=== PATIENT | female | born 1970 | race Caucasian/White ===

== ENCOUNTER 2019-09-14 19:12 | Inpatient (IN) | payer SELFPAY ==
[~2019-09-14] VITALS: Ht 152.4 cm; Wt 50.8 kg
[2019-09-14 19:23] VITALS: Ht 152.4 cm; Wt 50.8 kg
--- NOTE | 2019-09-14 19:40 | NUR ---
PATIENT MOVED FROM BED 3 TO BED OB. DEMETRIA BALLESTEROS AWARE.
--- NOTE | 2019-09-14 20:00 | NUR ---
LAB AT BEDSIDE TO COLLECT BLOOD CULTURES
--- NOTE | 2019-09-14 20:09 | NUR ---
PT CAME TO ED CO PAIN TO BILATERAL ARMS, BREAST AND LEGS. PT STS THIS PAIN STARTED ABOUT 3 MONTHS AGO. PT STS ON SATURDAY SHE STARTED TO EXPERIENCE FEVER AND DIAHERRA. PT AMBULATED FROM BED 3 TO OB WITH STEADY GAIT. PT PROVIDED A URINE SAMPLE. PT TALKING IN COMPLETE SENTENCES. NO S/S OF DISTRESS. RESP E/U. WILL CONTINUE TO MONITOR.
[2019-09-14 20:20] LABS: microscopic required? NO
[2019-09-14 20:35] LABS: urine erythrocyte NEGATIVE (NEGATIVE)
[2019-09-14 20:37] LABS: CALCIUM 8.6 mg/dL (8.5-10.1); CARBON DIOXIDE 22.9 mmol/L (21-32); CHLORIDE SERUM 94 mmol/L (98-107); CREATININE SERUM 0.5 mg/dL (0.6-1.0); GFR1 > 60 mL/min; GLUCOSE SERUM 371 mg/dL (74-106); SODIUM SERUM 129 mmol/L (136-145)
[2019-09-14 20:41] LABS: ALBUMIN 3.1 g/dL (3.4-5.0); ALKALINE PHOSPHATASE 105 U/L (46-116); ALT/SGPT 16 U/L (14-59); AST/SGOT 13 U/L (15-37); BILIRUBIN TOTAL 0.4 mg/dL (0.20-1.00); TOTAL PROTEIN, SERUM 7.1 g/dL (6.4-8.2)
[2019-09-14 20:42] LABS: BASOPHIL % 0.3 % (0-2); PLATELET COUNT 196 x10^3mcL (130-400); RED CELL DISTRIBUTION WIDTH 13.1 % (11.5-14.5)
[2019-09-14] MEDS ORDERED: METFORMIN500 M1 (21:29)
[2019-09-14] MEDS ORDERED: INSULIN SYRING1 EA29 (21:30)
[2019-09-14] MEDS ORDERED: METOPROLOL ER-1 EAC2 (21:30)
--- NOTE | 2019-09-14 21:44 | NUR ---
PT MEDICATED PER ORDER. PT VERBALIZED UNDERSTANDING OF MEDICATION TEACHING. SEE EMAR FOR DETAILS.
--- NOTE | 2019-09-14 21:55 | NUR ---
REPORT CALLED TO DEMETRIA GANNON TO ASSUME CARE
[2019-09-14 22:12] LABS: CHOLESTEROL/HDL RATIO 2.5
--- NOTE | 2019-09-14 22:22 | NUR ---
PT TRANSFERRED TO TELE FLOOR ACCOMPANIED BY NURSE AND EMT. NO S/S OF DISTRESS. RESP E/U. IV STIE PATENT, NO S/S OF INFILTRATION.
--- NOTE | 2019-09-14 22:25 | NUR ---
RECEIVED PT VIA [employer] FROM E/D, ACCOMPANIED BY RN AND TRANSPORTER. PT A/A/O X 4, CALM, COOPERATIVE; [place]-SPEAKING ONLY; DAUGHTER, BRAYAN ENGLISH ON PHONE FOR TRANSLATION. AMBULATORY, NO GAIT OR BALANCE IMPAIRMENT NOTED WHEN WALKING FROM GURNEY TO BED; C/O INTERMITTENT GENERALIZED BODY ACHING 10/10, EXACERBATED BY MOVEMENT AND WALKING, RELIEVED BY RESTING AND PAIN MEDICATION. ON TELE # 30, ST, HR 103, DENIES CHEST PAIN OR DISCOMFORT AT THIS TIME. LUNGS CTAB, CHEST RISING EVENLY, R/A, NO ACUTE RESPIRATORY DISTRESS NOTED (CXR SHOWS PATCHY GIL INFILTRATES). ABD SOFT, FLAT, NON-TENDER, NORMOACTIVE BOWEL SOUNDS X 4 QUADS, LAST BM 09/14/2019, DIARRHEA; PT STATES SHE DOES NOT HAVE SENSE OF TASTE. VOIDS FREELY, C/O BURNING ON URINATION (UA +KETONES). IV SITE RAC 20G, CDI. ORIENTED PT TO ROOM, BED CONTROLS, CALL LIGHT SYSTEM. SIDE RAILS UP X 2, BED IN LOW POSITION. PT ON CONTACT/DROPLET PRECAUTIONS D/T R/O COVID-19. WILL ENDORSE TO DEMETRIA GARZA.
--- NOTE | 2019-09-14 23:11 | NUR ---
PT MEDICATED W/ NORCO 7.5/325 MG PO GIVEN FOR C/O GEN. BODY PAIN 01/22.
[2019-09-14 23:31] VITALS: BP 152/79
--- NOTE | 2019-09-15 05:13 | NUR ---
PT REMAINS ASLEEP. SHE IS ON ROOM AIR AND NO C/O SOB. SHE WAS MEDICATED FOR GEN BODY PAIN X1. SHE IS AMBULATORY. IV ZITHROMAX STARTED THIS SHIFT. ALL NEEDS ATTENDED TO.
[2019-09-15 05:38] VITALS: BP 124/63
[2019-09-15 06:53] LABS: BASOPHIL % 0.2 % (0-2); PLATELET COUNT 188 x10^3mcL (130-400); RED CELL DISTRIBUTION WIDTH 13.3 % (11.5-14.5)
[2019-09-15 07:13] LABS: CALCIUM 8.2 mg/dL (8.5-10.1); CARBON DIOXIDE 22.9 mmol/L (21-32); CHLORIDE SERUM 100 mmol/L (98-107); CREATININE SERUM 0.4 mg/dL (0.6-1.0); GFR1 > 60 mL/min; GLUCOSE SERUM 234 mg/dL (74-106); MAGNESIUM 1.7 mg/dL (1.8-2.4); POTASSIUM SERUM 3.9 mmol/L (3.5-5.1); SODIUM SERUM 135 mmol/L (136-145)
--- NOTE | 2019-09-15 07:20 | NUR ---
RECEIVED PT. IN BED A/A/O X3. NO SOB, NO N/V NOTED. PT. DENIES ANY PAIN AT THIS TIME. IV SITE NOTED TO R AC. PT. IS DROPLET ISOLATION FOR RULING OUT COVID-19. BED IN LOW POS., CALL LIGHT WITHIN REACH. SIDE RAILS UP X3.
[2019-09-15 07:27] LABS: C REACTIVE PROTEIN 13.2 mg/dL (<=0.9)
[2019-09-15 09:12] VITALS: BP 139/83
[2019-09-15 13:06] VITALS: BP 132/77
--- NOTE | 2019-09-15 14:45 | NUR ---
Discount pharmacy card and list to low cost medical clinics given to [place] AUGUSTIN and will hand to patient.
[2019-09-15 16:44] VITALS: BP 149/75
--- NOTE | 2019-09-15 17:35 | NUR ---
TEMP.= 101.3; TYLENOL 650MG PO GIVEN. COOLING MEASURES APPLIED.
--- NOTE | 2019-09-15 19:33 | NUR ---
REMAINS IN STABLE CONDITION AT THIS TIME. LIDODERM 5% PATCH TO BE REMOVED AT 0440 AM ON 09/16/19. HAND CULTIVATOR RN (GREG PARTIDA RN) MADE AWARE OF THE TIME FOR THE LIDODERM PATCH REMOVAL.
--- NOTE | 2019-09-15 21:00 | NUR ---
RECEIVED PT IN BED AWAKE, ALERT,ORIENTED X4. LUNG SOUNDS DIMINISHED. NO SOB ON ROOM AIR. SHE IS C/O PAIN TO HER LT ARM 10. W/ HL TO RTAC INTACT CALL LIGHT W/IN REACH.
--- NOTE | 2019-09-15 21:14 | NUR ---
PT MEDICATED W/ NORCO 7.5/325 MG PO FOR C/O PAIN TO LT ARM 08/22.
--- NOTE | 2019-09-15 21:45 | NUR ---
PT C/O PAIN TO HER IV SITE ON HER RTAC. NO SWELLING NOTED. NEW IV STARTED ON THE LT HAND. PT TOLERATED PROCEDURE WELL. IV TO RTAC REMOVED.
[2019-09-15 21:49] VITALS: BP 122/69
[2019-09-16 05:06] VITALS: BP 127/70
--- NOTE | 2019-09-16 05:45 | NUR ---
PT MEDICATED W/ TYLENOL 650 MG PO FOR TEMP= 100.4 (ORAL). ALSO MEDICATED W/ NORCO 7.5/325 MG PO FOR C/O RT ARM PAIN 8/10.
--- NOTE | 2019-09-16 06:16 | NUR ---
PT SLEPT IN INTERVALS. SHE HAD NO EPISODE OF SOB AND REMAINS ON ROOM AIR. PT SATTING 96%. SHE WAS MEDICATED FOR LT ARM X1 AND RT ARM X1. PT ALSO W/ TEMP OF 100.4 THIS AM AND WAS GIVEN TYLENOL. PT NOTED W/ OCCASIONAL DRY COUGH. SHE IS AMBULATORY. NO BM THIS SHIFT. ALL NEEDS ATTENDED TO. DROPLET ISOLATION MAINTAINED.
--- NOTE | 2019-09-16 07:30 | NUR ---
PT ENDORSE TO ME THIS MORNING, REAMINS ON ISOLATION. AA/O X4/ CITIZEN OF [place] SP[place]. IS ABLE TO FOLLOW SIMPLE COMMANDS AND LET NEEDS BE KNOWN. TELE 30 ST NOTED HR 102 DENIES ANY CP OR PRESSURE. CTA REMAINS ON RN / NO ACUTE RESP DISTRESS OR SOB NOTED/ BREATHING EVEN AND UNLABORED. BOWEL SOUNDS ACTIVE IN ALL FOUR QUADS/VOIDS FREELY. AMB. STEADY GAIT. IV TO THE L HAND INTACT AND PATENT/ NO REDNESS OR SWELLING NOTED. CALL LIGHT IN REACH. WILL CONTINUE TO MONITOR.
[2019-09-16 08:06] LABS: CALCIUM 8.5 mg/dL (8.5-10.1); CARBON DIOXIDE 23.6 mmol/L (21-32); CHLORIDE SERUM 95 mmol/L (98-107); CREATININE SERUM 0.4 mg/dL (0.6-1.0); GFR1 > 60 mL/min; GLUCOSE SERUM 258 mg/dL (74-106); MAGNESIUM 1.7 mg/dL (1.8-2.4); PHOSPHOROUS 2.8 mg/dL (2.5-4.9); SODIUM SERUM 132 mmol/L (136-145)
[2019-09-16 09:08] VITALS: BP 125/76
[2019-09-16 11:49] VITALS: BP 119/75
[2019-09-16 12:49] LABS: BASOPHIL % 0.2 % (0-2); PLATELET COUNT 224 x10^3mcL (130-400); RED CELL DISTRIBUTION WIDTH 13.2 % (11.5-14.5)
--- NOTE | 2019-09-16 16:03 | NUR ---
LIDODERM PATCH APPLIED TO ANA
--- NOTE | 2019-09-16 16:28 | NUR ---
CURRENT TEMP 100.9 MEDICATED PER EMAR/ APPLIED COOLING MEASURES. WILL CONTINUE TO MONITOR.
--- NOTE | 2019-09-16 18:13 | NUR ---
NO ACUTE CHANGES AT THIS TIME. NO ACUTE RESP DISTRESS OR SOB NOTED.ARIANNA TEMP = 99.1 / SATING AT 95 % ON RA/ DENIES ANY SOB. SITTING UP IN BED HAVING HER DINNER/ DENIES ANY NV AT THIS TIME. PER PT HAD X1 BM TODAY. WILL ENDORSE TO INCOMING RN.
--- NOTE | 2019-09-16 19:47 | NUR ---
RECIEVED PT FROM PREVIOUS SHIFT NURSE. PT RESTING IN BED, AOX3, PRIMARILY CITIZEN OF [place] SPEAKING BUT ABLE TO MAKE NEEDS KNOWN, DENIES GARCIA, N/V, OR PAIN AT THE MOMENT, ABLE TO FOLLOW COMMANDS, AND NO FACIAL DROOPING NOTED. RR EVEN AND UNLABORED ON RA, CHEST RISING EQUALLY, DENIES SOB OR DIFFICULTY BREATHING. TELE #30 ST, PULSE OX: 95%, DENIES CHEST PAIN OR PRESSURE. IV LH WNL, NO ERYTHEMA, EDEMA, OR DRAINAGE NOTED. PT MAINTAINED ON CONTACT/DROPLET ISOLATION FOR COVID-19(+). BED IN LOWEST POSITION AND CALL LIGHT WITHIN REACH. WILL CONTINUE TO MONITOR.
[2019-09-16 21:18] VITALS: BP 131/72
--- NOTE | 2019-09-16 22:33 | NUR ---
PT C/O CHEST PAIN, DR. SANCHEZ NOTIFIED. WILL CONTINUE TO MONITOR.
--- NOTE | 2019-09-17 01:47 | NUR ---
PT RESTING IN BED W/ HOB ELEVATED. RR EVEN AND UNLABORED ON 2L/NC, CHEST RISING EQUALLY. TELE #30 ST. NO SIGNS OF ACUTE CHANGE OR DISTRESS NOTED. IV LH WNL, NO ERYTHEMA, EDEMA, OR DRAINAGE NOTED. BED IN LOWEST POSITION, SIDE RAILS UP X2, AND CALL LIGHT WITHIN REACH. WILL CONTINUE TO MONITOR.
[2019-09-17 05:51] VITALS: BP 131/73
--- NOTE | 2019-09-17 06:48 | NUR ---
PT RESTING COMFORTABLY IN BED, EASILY AROUSABLE. RR EVEN AND UNLABORED ON RA, CHEST RISING EQUALLY. TELE #30 NSR. NO SIGNS OF ACUTE CHANGE OR DISTRESS NOTED DURING THE SHIFT. IV LH WNL. BED IN LOWEST POSITION, SIDE RAILS UP X2, AND CALL LIGHT WITHIN REACH. WILL ENDORSE CARE TO ONCOMING SHIFT NURSE, AND WILL CONTINUE TO MONITOR.
[2019-09-17 07:12] LABS: C REACTIVE PROTEIN 9.9 mg/dL (<=0.9); CALCIUM 8.6 mg/dL (8.5-10.1); CARBON DIOXIDE 25.1 mmol/L (21-32); CHLORIDE SERUM 95 mmol/L (98-107); CREATININE SERUM 0.4 mg/dL (0.6-1.0); GFR1 > 60 mL/min; GLUCOSE SERUM 222 mg/dL (74-106); MAGNESIUM 1.7 mg/dL (1.8-2.4); PHOSPHOROUS 3.1 mg/dL (2.5-4.9); POTASSIUM SERUM 3.4 mmol/L (3.5-5.1); SODIUM SERUM 134 mmol/L (136-145)
[2019-09-17 07:17] LABS: BASOPHIL % 0.3 % (0-2); PLATELET COUNT 240 x10^3mcL (130-400); RED CELL DISTRIBUTION WIDTH 13.1 % (11.5-14.5)
--- NOTE | 2019-09-17 07:30 | NUR ---
PT ENDORSE TO ME THIS MORNING, LAYING IN BED RESTING, AA/O X4, VINCENTIAN SPKING. TELE 30 ST NOTED, HR 101 NOTED DENIES ANY CP OR PRESSURE. BREATHING EVEN AND UNLABORED ON 2L NC NO ACUTE RESP DISTRESS NOTED. VOIDS FREELY. AMB. KNOWS TO CALL FOR ASSIST. IV TO THE L HAND INTACT AND PATENT. REMAINS ON ISOLATION. WILL CONTINUE TO MONITOR. CALL LIGHT IN REACH.
[2019-09-17 09:15] VITALS: BP 129/79
[2019-09-17] MEDS ORDERED: ZES10 PO (10:56)
[2019-09-17] MEDS ORDERED: C500500 MG PO (11:14)
[2019-09-17] MEDS ORDERED: PEPCID AC20 M2 PO (11:14)
[2019-09-17] MEDS ORDERED: ELIQUIS2.5 MG PO (11:16)
[2019-09-17 12:20] VITALS: BP 108/71
[2019-09-17] MEDS ORDERED: GLIPIZIDE XL2.5 M1 PO (12:44)
[2019-09-17] MEDS ORDERED: FORTAMET1000 MG PO (12:44)
--- NOTE | 2019-09-17 12:58 | NUR ---
NO ACUTE CHANGES AT THIS TIME, NO ACUTE RESP DISTRESS OR SOB NOTED REMAINS ON RA SATING AT 94-96%. DENIES ANY GEN WEAKNESS TO BUE AT THIS TIME. IV TO THE L HAND INTACT AND PATENT/ WILL CONTINUE TO MONITOR.
[2019-09-17] MEDS ORDERED: ZITHROMAX500 MG PO (13:02)
--- NOTE | 2019-09-17 13:12 | NUR ---
[facility] CALLED ASKING FOR CLARIFICATION TO GLIPIZIDE PO MEDICATION, INFORMATION AND PHONE NUMBER WAS GIVEN TO DR. SOUTH.
[2019-09-17 14:17] VITALS: BP 108/71
--- NOTE | 2019-09-17 14:39 | NUR ---
EXPLAINED DISCHARGE INSTRUCTIONS/ NEW AND CONTINUED MEDS, FOLLOW UP APPT PT NEEDS TO MAKE WITH PRIMARY DOCTOR AND EDUCATED THE IMPORTANCE OF SELF ISOLATION FOR 14 MORE DAYS/ PT AGREED AND SIGNED ALL DC FORMS. PT STATED HER DAUGHTER IS ON HER WAY TO PICK HER UP. PENDING DC
--- NOTE | 2019-09-17 15:16 | NUR ---
REMOVED TELE 30 AND RETURNED BACK TO TELE. REMOVED IV TO THE L HAND INTACT/ CATHETER TIP INTACT/ TOLERATED REMOVAL WELL. PT IS CLEAR ON ALL DC INSTRUCTIONS AND ISOLATING FOR 14 MORE DAYS AND FOLLOWING UP WITH PRIMARY DOC. DC HOME WITH DAUGHTER.
== END 2019-09-17 15:14 | disposition home or self-care (01) | DRG 871 ==
LOC: ED 19:12 → DU 21:23
PROVIDERS: Emergency Medicine; Family Medicine; ADMIT Internal Medicine; ATTEND Internal Medicine
DX: A41.9 Sepsis, unspecified organism (principal); J96.01 Acute respiratory failure with hypoxia; U07.1 COVID-19; J12.89 Other viral pneumonia; E87.1 Hypo-osmolality and hyponatremia; E44.1 Mild protein-calorie malnutrition; I10 Essential (primary) hypertension; R65.20 Severe sepsis without septic shock; E11.65 Type 2 diabetes mellitus with hyperglycemia; Z68.21 Body mass index [BMI] 21.0-21.9, adult; E83.42 Hypomagnesemia; M79.601 Pain in right arm
CPT/HCPCS: 82962; 85378; G0378; J0456; J0696; J1815; J7030; J7040; J7050; J7060; Q0092; U0003-CS

== ENCOUNTER 2019-11-26 00:20 | Emergency (ER) | payer MEDICAID ==
[~2019-11-26] VITALS: Ht 154.9 cm; Wt 53.1 kg
[~2019-11-26 00:20] MED LIST: C500500 MG PO; ELIQUIS2.5 MG PO; FORTAMET1000 MG PO; GLIPIZIDE XL2.5 M1 PO; INSULIN SYRING1 EA29; METFORMIN500 M1; METOPROLOL ER-1 EAC2; PEPCID AC20 M2 PO; ZES10 PO; ZITHROMAX500 MG PO
[2019-11-26 00:28] VITALS: Ht 154.9 cm; Wt 53.1 kg
[2019-11-26 01:58] VITALS: BP 157/79
== END 2019-11-26 01:58 | disposition home or self-care (01) ==
LOC: ED 00:20
DX: S29.012A Strain of muscle and tendon of back wall of thorax, initial encounter (principal); I10 Essential (primary) hypertension; E11.9 Type 2 diabetes mellitus without complications; X58.XXXA Exposure to other specified factors, initial encounter; Y93.89 Activity, other specified; Y92.89 Other specified places as the place of occurrence of the external cause; Y99.8 Other external cause status
CPT/HCPCS: J1885; Q0092

== ENCOUNTER 2019-12-23 10:37 | Emergency (ER) | payer MEDICAID ==
[~2019-12-23] VITALS: Ht 127 cm; Wt 51.7 kg
[2019-12-23 11:10] VITALS: Ht 127 cm; Wt 51.7 kg
[2019-12-23 13:35] LABS: BASOPHIL % 0.3 % (0-2); PLATELET COUNT 221 x10^3mcL (130-400); RED CELL DISTRIBUTION WIDTH 13.4 % (11.5-14.5)
[2019-12-23 14:03] LABS: CALCIUM 8.8 mg/dL (8.5-10.1); CARBON DIOXIDE 29.5 mmol/L (21-32); CHLORIDE SERUM 96 mmol/L (98-107); CREATININE SERUM 0.5 mg/dL (0.6-1.0); GFR1 > 60 mL/min; GLUCOSE SERUM 263 mg/dL (74-106); POTASSIUM SERUM 3.9 mmol/L (3.5-5.1); SODIUM SERUM 131 mmol/L (136-145)
[2019-12-23 14:04] LABS: microscopic required? NO
[2019-12-23 14:08] LABS: ALBUMIN 3.8 g/dL (3.4-5.0); ALKALINE PHOSPHATASE 100 U/L (46-116); ALT/SGPT 24 U/L (14-59); AMYLASE 49 U/L (25-115); AST/SGOT 16 U/L (15-37); BILIRUBIN TOTAL 0.3 mg/dL (0.20-1.00); LIPASE 108 IU/L (73-393); TOTAL PROTEIN, SERUM 7.5 g/dL (6.4-8.2)
[2019-12-23 14:20] LABS: urine erythrocyte NEGATIVE (NEGATIVE)
[2019-12-23 17:54] VITALS: BP 151/90
== END 2019-12-23 17:54 | disposition home or self-care (01) ==
LOC: ED 10:37
PROVIDERS: Specialist
DX: R10.816 Epigastric abdominal tenderness (principal); R10.815 Periumbilic abdominal tenderness; R10.12 Left upper quadrant pain; I10 Essential (primary) hypertension; E11.9 Type 2 diabetes mellitus without complications; E78.00 Pure hypercholesterolemia, unspecified; Z98.890 Other specified postprocedural states
CPT/HCPCS: J1885; J3010; J7030

== ENCOUNTER 2020-06-04 16:01 | Emergency (ER) | payer MEDICAID ==
[~2020-06-04] VITALS: Ht 147.3 cm; Wt 56.7 kg
[2020-06-04 16:32] VITALS: Ht 147.3 cm; Wt 56.7 kg
[2020-06-04 17:00] LABS: microscopic required? NO
[2020-06-04 17:16] LABS: UA SPECIFIC GRAVITY 1.025 (1.005-1.035); urine erythrocyte NEGATIVE (NEGATIVE)
[2020-06-04 17:49] LABS: RED CELL DISTRIBUTION WIDTH 13.8 % (12.3-17.7)
[2020-06-04 17:54] LABS: BASOPHIL % 0.8 % (0.2-1.3); PLATELET COUNT 251 x10^3mcL (179-408)
[2020-06-04 18:04] LABS: CALCIUM 8.9 mg/dL (8.5-10.1); CARBON DIOXIDE 28.5 mmol/L (21-32); CHLORIDE SERUM 99 mmol/L (98-107); CREATININE SERUM 0.4 mg/dL (0.6-1.0); GFR1 > 60 mL/min; GLUCOSE SERUM 253 mg/dL (74-106); SODIUM SERUM 133 mmol/L (136-145)
[2020-06-04 18:08] LABS: ALBUMIN 3.4 g/dL (3.4-5.0); ALKALINE PHOSPHATASE 120 U/L (46-116); ALT/SGPT 22 U/L (14-59); AST/SGOT 11 U/L (15-37); BILIRUBIN TOTAL 0.2 mg/dL (0.20-1.00); LIPASE 115 IU/L (73-393); TOTAL PROTEIN, SERUM 6.7 g/dL (6.4-8.2)
[2020-06-04 18:14] VITALS: BP 149/82
== END 2020-06-04 18:42 | disposition home or self-care (01) ==
LOC: ED 16:01
PROVIDERS: Student in an Organized Health Care Education/Training Program
DX: K29.70 Gastritis, unspecified, without bleeding (principal); I10 Essential (primary) hypertension; E11.9 Type 2 diabetes mellitus without complications; E78.00 Pure hypercholesterolemia, unspecified; Z98.890 Other specified postprocedural states
CPT/HCPCS: J1885; Q0162